=== PATIENT | male | born 1985 | race Caucasian/White ===

== ENCOUNTER 2017-04-20 20:39 | Emergency (ER) | payer OTHER ==
[~2017-04-20] VITALS: Ht 190.5 cm; Wt 81.6 kg
== END 2017-04-20 21:47 | disposition home or self-care (01) ==
LOC: CED 20:39
DX: F11.129 Opioid abuse with intoxication, unspecified (principal); F17.200 Nicotine dependence, unspecified, uncomplicated
CPT/HCPCS: 99284